=== PATIENT | female | born 1975 | race Caucasian/White ===

== ENCOUNTER 2017-11-03 22:04 | Emergency (ER) | payer MEDICAID, SELFPAY ==
[2017-11-03 22:06] VITALS: BP 150/93; PULSE 120; RESP 16; TEMP 37; O2SAT 99; BMI 30.9
[2017-11-03 22:20] LABS: Mucous, Urine 0 SEEN /hpf (<or=2+)
[2017-11-03 22:23] LABS: Color, Urine Amber (Yellow); Glucose, Dipstick Normal (Normal); Ketone-Dipstick 5 mg/dl (Negative); Leukocyte Esterase-Dipstick 500 /ul (Negative); Nitrite-Dipstick Negative (Negative); Occult Blood-Urine 250 /ul (Negative); Protein-Dipstick 100 mg/dl (Negative); Urine Clarity Cloudy (Clear); Urine Urobilinogen 8 mg/dl (Normal)
[2017-11-03 22:29] LABS: Urine Bilirubin Dipstick 1 mg/dL (Negative)
[2017-11-03 22:30] LABS: Hyaline Cast 0-5 SEEN /lpf (0-5)
[2017-11-03 22:33] LABS: Red Blood Cells-Urine > 100 SEEN /hpf (0-5)
[2017-11-03 22:34] LABS: Bacteria 2+ /hpf (None Seen); Squamous Epithelial Cells - UA 0-5 SEEN /hpf (5-10); White Blood Cells 50-100 SEEN /hpf (0-5)
[2017-11-03 22:35] LABS: Transitional Epithelial - Ur 0-5 SEEN /hpf (0-5)
--- NOTE | 2017-11-03 22:50 | CT_ITS ---
STUDY: CT ABDOMEN AND PELVIS WITHOUT CONTRAST REASON FOR EXAM: Female, 42 years old. Kidney pain with hematuria for one week. RADIATION DOSAGE (If Supplied By Facility): CTDIvol = ( 9.09 ) mGy, DLP = ( 429.43 ) mGycm TECHNIQUE: Transaxial images were obtained from the dome of the diaphragm to the symphysis pubis without oral contrast, and without intravenous contrast. Sagittal and coronal images were reconstructed. Individualized dose optimization techniques were used for this CT. COMPARISON: July 17, 2017. FINDINGS: The visualized lung bases are unremarkable. The visualized portions of the heart are within normal limits. Normal liver. Normal gallbladder and extrahepatic biliary system. Normal spleen. Normal pancreas. Normal bilateral adrenal glands. The right kidney is mildly enlarged and there is mild dilatation of the renal collecting system. An obstructing stone is not definitively identified although there is a 1 mm density, not indicative of a calcification, within the region of the proximal right ureter axial image 72 series 2. This probably does not represent an obstructing stone. Normal left kidney. Normal visualized stomach. Normal small intestine. Normal colon. There is non-visualization of the appendix compatible with history of appendectomy. Normal abdominal aorta. Normal inferior vena cava. Normal retroperitoneum. Normal urinary bladder. Uterus grossly normal. No adnexal masses seen. Normal abdominal wall. Normal osseous structures. CT/Abdomen/Pelvis without Cont IMPRESSION: Mild enlargement of the right kidney with mild dilatation of the renal collecting system without evidence of obstructing stone. Considerations include a recently passed stone, obstructing thrombus or a mass. Pyelonephritis is a consideration. The abnormal appearance of the right kidney is similar but not as prominent as on the prior study. Electronically Signed: Remi Barnett MD at 0:36 EST , Service support ,
--- NOTE | 2017-11-03 22:53 | ED.DCSUM_ITS ---
- ER Visit Summary Date of Service: 11/03/17 Chief Complaint: [Right flank pain] History of Present Illness: The patient is a 42 F [presents the emergency department with right back pain. It has been going on for a week. It started off in the lower right back now hurts in the right upper back. It comes and goes. She has hematuria. She has frequent kidney infections. She also has chronic back pain so she thought it might be that to begin with. She had subjective fevers. She feels weak and dizzy. She has no appetite and some nausea. No vomiting. Bowel movements have been normal. She has had 3 C- sections and an appendectomy.] Physical Examination: [] Blood pressure 150/93 heart rate 120 other vitals within normal limits WN WD NAD PERRL EOMI MMM NECK supple and nontender, no masses RRR no murmur rub or gallop, no peripheral edema, symmetric radial pulses CTAB no respiratory distress ABDOMEN is soft she has epigastric right upper quadrant right lower quadrant and left upper quadrant tenderness, normal bowel sounds, no distension, no rebound or guarding She has right CVA tenderness SKIN is warm and dry no rashes Alert and Oriented x3, CN II-XII in tact, no motor or sensory deficits, gait normal No lymphadenopathy Test Results: [] Emergency Department Course and Treatment: [Screening labs and urinalysis were sent. CT was ordered to evaluate for kidney stone. She was mildly hypokalemic. She was given 40 mEq of potassium. Your urine was consistent with infection. Urine culture was sent. Patient was given fluids and IV ceftriaxone. She tolerated this well. She continued to have some pain was given morphine and Toradol. CT showed dilation of the right collecting duct system. I do think this represents pyelonephritis. Patient was given precautions for which to return. She will follow-up closely with her doctor. She was given a prescription for 2 weeks of Keflex Zofran and 6 [place].] Treatment Plan: [] Disposition: [Discharge] Impression: [1. Pyelonephritis 2. Hypokalemia] This note was generated with [employer] software. It may contain incorrect words, spelling, and punctuation that were not noted in review of the chart prior to signing ED Disposition - Plan for ED Patient: Chief Complaint: Complaint Referrals: Yamile Aguilar DO [STAFF PHYSICIAN] -
[2017-11-03] MEDS: Ondansetron 4 MG/2 ML Vial IV (23:03)
[2017-11-03] MEDS: 0.9% Normal Saline 1,000 ML 1000 ML IV (23:03)
[2017-11-03 23:14] LABS: Absolute Lymphocyte Count 1.38 X10^3/ul (0.83-4.51); Absolute Neutrophil Count 5.8 X10^3/uL (2.0-7.7); Basophil# 0.01 X10^3/uL; Basophil% 0.1 % (0-1); Eosinophil# 0.03 X10^3/uL; Eosinophils% 0.4 % (0-5); Hematocrit 41.1 % (37-47); Hemoglobin 13.8 g/dl (12.0-15.0); Lymphocyte # 1.38 X10^3/ul (4.0); Lymphocyte % 16.4 % (19-41); Mean Corp Hgb Conc 33.6 g/gl (32-36); Mean Corpuscular Hgb 30.7 pg (27.0-32.0); Mean Corpuscular Volume 91.3 fL (81-99); Mean Platelet Vol. 10.2 fl (6.2-12.0); Monocyte# 1.17 X10^3/uL; Monocyte% 13.9 % (0-10); Neutrophil # 5.78 X10^3/uL (2.7-7.7); Neutrophil % 68.8 % (47-70); POSITIVE COUNT NO; POSITIVE DIFFERENTIAL NO; POSITIVE MORPHOLOGY NO; Platelet Count 191 K/mm3 (150-450); RBC Distribution Width CV 13.1 % (11.6-14.6); RBC Distribution Width SD 43.5 fl (35.1-43.9); White Blood Count 8.4 K/mm3 (4.4-11.0)
[2017-11-03 23:39] LABS: ALB/GLOB Ratio 0.7 RATIO (0.9-2.4); AST(SGOT) 11 U/L (15-37); Alanine Aminotransfer ALT/SGPT 13 U/L (13-56); Albumin, Serum 3.4 g/dL (3.2-5.0); Alkaline Phosphatase 86 U/L (45-117); Anion Gap 9 (5-15); BUN 14 mg/dL (7-18); BUN/Creat Ratio 18.4 RATIO (10-20); Calcium,Total 8.2 mg/dL (8.5-10.1); Chloride 99 mmol/L (98-107); Creatinine, Serum 0.76 mg/dL (0.55-1.02); EST Glomerular Filtration Rate 88 mL/min (>60); Est Glom Filt Rate - Afr Amer 106 mL/min (>60); Estimated Creatinine Clearance 82.42 ml/min; Globulin 4.8 g/dL (2.2-4.2); Glucose 84 mg/dL (74-106); Lipase 77 U/L (73-393); Pregnancy, Serum, hCG Quali. NEGATIVE Negative (0-9 Nonpreg); Protein, Total 8.2 g/dL (6.4-8.2); Sodium Level 134 mmol/L (136-145)
--- NOTE | 2017-11-04 00:58 | ED.DEP ---
ED Disposition - Plan for ED Patient: Chief Complaint: Complaint Instructions: ED Kidney Infec Female Prescriptions: Hydrocodone Bitart/Apap 5-325 [[place] 5/325] 1 - 2 tablet PO Q6H PRN PRN 2 Days #7 tablet PRN Reason: Pain Ondansetron [Zofran Odt] 4 mg PO Q8H PRN PRN #10 tablet PRN Reason: Nausea Cephalexin 500 mg PO TID #42 capsule Referrals: Yamile Aguilar DO [STAFF PHYSICIAN] - 3-5 Days
--- NOTE | 2017-11-04 01:01 | DCINST.ED_ITS ---
ED Disposition - Plan for ED Patient: Chief Complaint: Complaint Instructions: ED Kidney Infec Female Prescriptions: Hydrocodone Bitart/Apap 5-325 [[place] 5/325] 1 - 2 tablet PO Q6H PRN PRN 2 Days # 7 tablet PRN Reason: Pain Ondansetron [Zofran Odt] 4 mg PO Q8H PRN PRN #10 tablet PRN Reason: Nausea Cephalexin 500 mg PO TID #42 capsule Referrals: Yamile Aguilar DO [STAFF PHYSICIAN] - 3-5 Days
[2017-11-04] MEDS: Ketorolac 30 MG/ML Syringe IV (01:10)
[2017-11-04 01:55] VITALS: BP 120/72; RESP 18; O2SAT 96
== END 2017-11-04 01:56 | disposition home or self-care (01) ==
PROVIDERS: Emergency Provider Emergency Medicine
DX: N12 Tubulo-interstitial nephritis, not specified as acute or chronic (principal); R31.9 Hematuria, unspecified; E87.6 Hypokalemia; J44.9 Chronic obstructive pulmonary disease, unspecified; R51 Headache; M54.9 Dorsalgia, unspecified; G89.29 Other chronic pain; Z72.0 Tobacco use
CPT/HCPCS: 74176; 80053; 81001; 83690; 84703; 85025; 96361; 96365; 96375; 96376; 99282; J7030; J2405

== ENCOUNTER 2018-05-09 01:34 | Emergency (ER) | payer MEDICAID, SELFPAY ==
[2018-05-09 01:36] VITALS: BP 104/90; PULSE 96; RESP 16; TEMP 36.7; O2SAT 97; BMI 28.3
[2018-05-09 01:46] LABS: Mucous, Urine 0 SEEN /hpf (<or=2+); Red Blood Cells-Urine 0 SEEN /hpf (0-5)
[2018-05-09 01:49] LABS: Color, Urine Yellow (Yellow); Glucose, Dipstick Normal (Normal); Ketone-Dipstick 5 mg/dl (Negative); Leukocyte Esterase-Dipstick 500 /ul (Negative); Nitrite-Dipstick Positive (Negative); Occult Blood-Urine 50 /ul (Negative); Protein-Dipstick 30 mg/dl (Negative); Urine Bilirubin Dipstick Negative (Negative); Urine Clarity Cloudy (Clear); Urine Urobilinogen 4 mg/dl (Normal)
[2018-05-09 01:59] LABS: Bacteria 2+ /hpf (None Seen); Squamous Epithelial Cells - UA 5-10 SEEN /hpf (5-10); White Blood Cells 25-50 SEEN /hpf (0-5)
--- NOTE | 2018-05-09 02:36 | ED.VISSUMM ---
- ER Visit Summary Date of Service: 05/09/18 Chief Complaint: Back pain History of Present Illness: The patient is a 43 F presenting with back pain and urinary frequency. This has been ongoing for the past 3 days. She has had subjective fever. Pain is in the right and left lower back. She states she had a urine infection 1-2 months ago. She does not currently have a primary care physician. Denies other complaints. Physical Examination: Vitals are stable. Patient is afebrile. Alert no acute distress. HEENT exam is unremarkable. Neck is supple. Lungs are clear and equal bilaterally. Heart is regular rate and rhythm. Abdomen is soft mild suprapubic tenderness with no rebound or guarding Back: Mild left CVA tenderness Extremities are unremarkable. Skin is warm and dry. Remainder of exam is unremarkable. Emergency Department Course and Treatment: Urinalysis shows 25-50 white blood cells, 0 red blood cells, 2+ bacteria. Patient was given Cipro, Phenergan, [place] ?1 in the emergency department. She is given prescriptions for Cipro and Phenergan. 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 Advised to return to the ED for worsening complaints. Disposition: Discharge home Impression: UTI/pyelonephritis This note was generated with [employer] dictation software. It may contain incorrect words, spelling, and punctuation that were not noted in review of the chart prior to signing ED Disposition - Plan for ED Patient: Chief Complaint: Back Referrals: Care Physician,No Primary [Primary Care Provider] -
--- NOTE | 2018-05-09 02:39 | ED.DCSUM_ITS ---
- ER Visit Summary Date of Service: 05/09/18 Chief Complaint: Back pain History of Present Illness: The patient is a 43 F presenting with back pain and urinary frequency. This has been ongoing for the past 3 days. She has had subjective fever. Pain is in the right and left lower back. She states she had a urine infection 1-2 months ago. She does not currently have a primary care physician. Denies other complaints. Physical Examination: Vitals are stable. Patient is afebrile. Alert no acute distress. HEENT exam is unremarkable. Neck is supple. Lungs are clear and equal bilaterally. Heart is regular rate and rhythm. Abdomen is soft mild suprapubic tenderness with no rebound or guarding Back: Mild left CVA tenderness Extremities are unremarkable. Skin is warm and dry. Remainder of exam is unremarkable. Emergency Department Course and Treatment: Urinalysis shows 25-50 white blood cells, 0 red blood cells, 2+ bacteria. Patient was given Cipro, Phenergan, [place] ?1 in the emergency department. She is given prescriptions for Cipro and Phenergan. 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 Advised to return to the ED for worsening complaints. Disposition: Discharge home Impression: UTI/pyelonephritis This note was generated with [employer] dictation software. It may contain incorrect words, spelling, and punctuation that were not noted in review of the chart prior to signing ED Disposition - Plan for ED Patient: Chief Complaint: Back Referrals: Care Physician,No Primary [Primary Care Provider] -
--- NOTE | 2018-05-09 02:39 | ED.DEP ---
ED Disposition - Plan for ED Patient: Chief Complaint: Back Instructions: ED UTI Cystitis Female Prescriptions: proMETHazine tablet [Phenergan] 25 mg PO Q6H PRN PRN #10 tablet PRN Reason: Nausea Ciprofloxacin [Cipro] 500 mg PO BID #14 tablet Referrals: Care Physician,No Primary [Primary Care Provider] - Anna Steven MD [STAFF PHYSICIAN] -
[2018-05-09 02:51] VITALS: PULSE 78; RESP 16; O2SAT 98
[2018-05-09] MEDS: proMETHazine 25 MG Tablet PO (02:51)
[2018-05-09] MEDS: HYDROcodone Bitartrate/Apap 5/325 Tablet PO (02:51)
[2018-05-09] MEDS: Ciprofloxacin 500 MG Tablet PO (02:52)
== END 2018-05-09 02:54 | disposition home or self-care (01) ==
PROVIDERS: Emergency Provider Emergency Medicine
DX: N12 Tubulo-interstitial nephritis, not specified as acute or chronic (principal); Z72.0 Tobacco use
CPT/HCPCS: 81001; 99283